=== PATIENT | male | born 1950 | race Hispanic/Latino ===

== ENCOUNTER → 2020-10-14 | Outpatient (CLI) | payer MEDICARE | END | disposition home or self-care (01) | LOC: SHCH 13:00 | PROVIDERS: ATTEND Internal Medicine Cardiovascular Disease | DX: I10 Essential (primary) hypertension (principal) | CPT/HCPCS: 93306 ==

== ENCOUNTER → 2023-04-24 | Outpatient (CLI) | payer OTHER, MEDICARE ==
[2023-04-24 12:37] LABS: ALBUMIN 3.7 g/dL (3.5-5.0); CREATININE 1.1 mg/dL (0.5-1.5); MAGNESIUM 1.8 mg/dL (1.80-2.40); POTASSIUM 4.4 mmol/L (3.5-5.1); TOTAL PROTEIN, SERUM 7.2 g/dL (6.0-8.3)
== END | disposition home or self-care (01) ==
LOC: LAB 08:18
PROVIDERS: ATTEND Internal Medicine Cardiovascular Disease
DX: I11.0 Hypertensive heart disease with heart failure (principal); E78.5 Hyperlipidemia, unspecified; I50.22 Chronic systolic (congestive) heart failure
CPT/HCPCS: 36415; 80053; 80061; 83735

== ENCOUNTER → 2023-09-26 | Outpatient (CLI) | payer OTHER, MEDICARE ==
[2023-09-26 12:35] LABS: ALBUMIN 3.5 g/dL (3.5-5.0); CREATININE 1.1 mg/dL (0.5-1.5); POTASSIUM 4.9 mmol/L (3.5-5.1); TOTAL PROTEIN, SERUM 7.1 g/dL (6.0-8.3)
== END | disposition home or self-care (01) ==
LOC: LAB 08:32
PROVIDERS: ATTEND Internal Medicine Cardiovascular Disease
DX: I11.0 Hypertensive heart disease with heart failure (principal); I50.22 Chronic systolic (congestive) heart failure; G47.33 Obstructive sleep apnea (adult) (pediatric)
CPT/HCPCS: 36415; 80053; 80061

== ENCOUNTER → 2024-01-16 | Outpatient (CLI) | payer OTHER, MEDICARE ==
[2024-01-16 12:26] LABS: ALBUMIN 3.5 g/dL (3.5-5.0); BILIRUBIN,TOTAL 1.1 mg/dL (0.2-1.0); CREATININE 1.1 mg/dL (0.5-1.5); POTASSIUM 4.4 mmol/L (3.5-5.1); TOTAL PROTEIN, SERUM 6.9 g/dL (6.0-8.3)
== END | disposition home or self-care (01) ==
LOC: LAB 08:37
PROVIDERS: ATTEND Internal Medicine Cardiovascular Disease
DX: E78.00 Pure hypercholesterolemia, unspecified (principal)
CPT/HCPCS: 36415; 80053; 80061

== ENCOUNTER → 2024-05-15 | Outpatient (CLI) | payer OTHER, MEDICARE ==
[2024-05-15 12:26] LABS: CREATININE 1.1 mg/dL (0.5-1.3)
== END | disposition home or self-care (01) ==
LOC: LAB 09:15
PROVIDERS: ATTEND Internal Medicine Cardiovascular Disease
DX: I11.0 Hypertensive heart disease with heart failure (principal); I50.22 Chronic systolic (congestive) heart failure; G47.33 Obstructive sleep apnea (adult) (pediatric)
CPT/HCPCS: 36415; 80048

== ENCOUNTER → 2024-06-25 | Outpatient (CLI) | payer OTHER, MEDICARE ==
[2024-06-25 12:20] LABS: CREATININE 1.2 mg/dL (0.5-1.3); POTASSIUM 4.5 mmol/L (3.5-5.1)
== END | disposition home or self-care (01) ==
LOC: LAB 08:08
PROVIDERS: ATTEND Internal Medicine Cardiovascular Disease
DX: I50.22 Chronic systolic (congestive) heart failure (principal)
CPT/HCPCS: 36415; 80048; 83880

== ENCOUNTER → 2024-12-30 | Outpatient (CLI) | payer OTHER, MEDICARE ==
[2024-12-30 13:03] LABS: ALBUMIN 3.7 g/dL (3.5-5.0); BILIRUBIN,TOTAL 1.1 mg/dL (0.2-1.0); CREATININE 1.1 mg/dL (0.5-1.3); POTASSIUM 4.7 mmol/L (3.5-5.1); TOTAL PROTEIN, SERUM 6.9 g/dL (6.0-8.3)
== END | disposition home or self-care (01) ==
LOC: LAB 09:17
PROVIDERS: ATTEND Internal Medicine Cardiovascular Disease
DX: I50.22 Chronic systolic (congestive) heart failure (principal); I95.2 Hypotension due to drugs
CPT/HCPCS: 36415; 80053; 80061; 83880

== ENCOUNTER 2025-11-21 13:29 | Emergency (ER) | payer OTHER, MEDICAID ==
[~2025-11-21] VITALS: Ht 177.8 cm; Wt 85.3 kg
[2025-11-21 13:30] VITALS: TEMP 98.3
--- NOTE | 2025-11-21 13:36 | ERN ---
ED Note History of Present Illness Stated Complaint: LOWER EXTREMITY PAIN Chief Complaint: Lower Extremity Pain/Injury Time Seen by MD: 13:31 Dictation: PATIENT IS A 75-YEAR-OLD MALE COMING IN TODAY WITH COMPLAINTS OF SWELLING TO HIS VEINS TO HIS LEFT LOWER EXTREMITY WITH COOLNESS TO TOUCH ONSET WAS ONE WEEK AGO. HE STATES HE DOES HAVE CLAUDICATION WITH A AMBULATION. STATES HE HAS A AN APPOINTMENT WITH SEE DR. GRAVES ON SATURDAY. Allergies: Coded Allergies: No Known Drug Allergies (Unverified Allergy, Unknown, 11/21/25) Past Medical History Past Medical History: Asthma, CAD, High Cholesterol, Hypertension Surgical History: Other Surgical History Other: NECK SX RN Note Reviewed/Agreed w/PFSH: Yes Review of System Dictation CONSTITUTIONAL: NEGATIVE EXCEPT FOR HPI HEAD/FACE: NEGATIVE EXCEPT FOR HPI EENT: NEGATIVE EXCEPT FOR HPI RESPIRATORY: NEGATIVE EXCEPT FOR HPI GASTROINTESTINAL/ABDOMINAL: NEGATIVE EXCEPT FOR HPI GENITOURINARY: NEGATIVE EXCEPT FOR HPI MUSCULOSKELETAL: NEGATIVE EXCEPT FOR HPI LEFT LEG PAIN WITH CLAUDICATION INTEGUMENTARY: NEGATIVE EXCEPT FOR HPI NEUROLOGICAL/PSYCH: NEGATIVE EXCEPT FOR HPI HEMATOLOGIC/LYMPHATIC: NEGATIVE EXCEPT FOR HPI ALL SYSTEMS NEGATIVE, EXCEPT NOTED ABOVE. 13 POINT REVIEW OF SYSTEMS ASSESSED AND ALL NEGATIVE EXCEPT FOR ABOVE. Initial Vital Sign VS Vital Signs Date Time Temp Pulse Resp B/P (MAP) Pulse Ox O2 Delivery O2 Flow Rate FiO2 11/21/25 13:30 98.2 80 20 170/63 99 Room Air 11/21/25 14:51 0 21 Physical Exam Dictation VITAL SIGNS REVIEWED GENERAL APPEARANCE: ALERT, ORIENTED X 3, NO ACUTE DISTRESS, WELL DEVELOPED, NOURISHED. HEAD AND FACE: NON-TRAUMATIC. EYES: PERRL, PINK CONJUNCTIVAS, EYELID NO TRAUMA, ANTERIOR CHAMBER WITH ARCUS SENILIS. EARS: PINNAS INTACT AND NO SIGNS OF TRAUMA OR ERYTHEMA EAR CANALS CLEAR AND NO DISCHARGE TM NO ERYTHEMA NOSE: NO DISCHARGE, NO BLEEDING. OROPHARYNX: MOUTH NORMAL, TONGUE PINK, PHARYNX CLEAR,NO ERYTHEMA, TONSILS NO EXUDATES, NO ABSCESSES NOTED, MUCOUS MEMBRANE MOIST NECK: SUPPLE, NON-TENDER, NO THYROMEGALY, NO MASSES, NO JVD, NO BRUITS BREAST:DEFERRED CHEST:NO TENDERNESS, NO CREPITUS, NO PARADOXICAL MOVEMENT, NO RETRACTIONS LUNGS:CLEAR, WELL-VENTILATED, SYMMETRIC, NO RALES, NO WHEEZING, NO RHONCHI, NO STRIDOR, GOOD BREATH SOUNDS BILATERALLY HEART: REGULAR RATE, REGULAR RHYTHM, NO MURMUR, NO GALLOPS VASCULAR: NO PERIPHERAL EDEMA, ABDOMEN: SOFT, POSITIVE BOWEL SOUNDS, NONDISTENDED, NO GUARDING, NONTENDER, NO REBOUND, NO MASSES NO HEPATOMEGALY, NO SPLENOMEGALY, NO VIDAL'S SIGN, NO HERNIAS. RECTAL: DEFERRED GENITAL: DEFERRED NEUROLOGICAL: NORMAL SPEECH, MOTOR FUNCTION INTACT, SENSORY FUNCTION INTACT MUSCULOSKELETAL: NECK NONTENDER, FULL RANGE OF MOTION, BACK NONTENDER, FULL RANGE OF MOTION, EXTREMITIES: NONTENDER, FULL RANGE OF MOTION LEFT LEG IS WARM TO TOUCH DISTAL LEAD, THREADY PULSES. THERE WAS NO CLUBBING SKIN: COLOR PINK, DRY, NO TURGOR, NO RASH, NO LACERATIONS, NO ABRASIONS, NO CONTUSIONS. LYMPHATIC: DEFERRED Results (Laboratory/Radiology) Laboratory/Radiology Laboratory Tests Test 11/21/25 13:44 White Blood Count 6.6 K/uL (4.8-10.8) Red Blood Count 4.36 MIL/uL (4.50-6.20) L Hemoglobin 14.6 g/dL (14.0-18.0) Hematocrit 43.7 % (42-54) Mean Corpuscular Volume 100.2 fL (79-99) H Mean Corpuscular Hemoglobin 33.5 pg (27.0-33.0) H Mean Corpuscular Hemoglobin Concent 33.4 g/dL (32.0-36.0) Red Cell Distribution Width 12.3 % (11.0-15.5) Platelet Count 203 K/uL (130-400) Mean Platelet Volume 10.3 fL (7.5-10.5) Immature Granulocyte % (Auto) 0.3 % (0-1) Neutrophils (%) (Auto) 76.0 % (40.0-77.0) Lymphocytes (%) (Auto) 14.2 % (21.0-51.0) L Monocytes (%) (Auto) 6.9 % (3.0-13.0) Eosinophils (%) (Auto) 2.1 % (0.0-8.0) Basophils (%) (Auto) 0.5 % (0.0-5.0) Neutrophils # (Auto) 5.0 K/uL (1.8-7.7) Lymphocytes # (Auto) 0.9 K/uL (1.0-4.8) L Monocytes # (Auto) 0.5 K/uL (0.1-1.0) Eosinophils # (Auto) 0.14 K/uL (0.00-0.70) Basophils # (Auto) 0.03 K/uL (0.00-0.20) Absolute Immature Granulocyte (auto 0.02 K/uL (0-1) Nucleated Red Blood Cells 0.0 % (0.0-0.19) Sodium Level 138 mmol/L (136-145) Potassium Level 4.6 mmol/L (3.5-5.1) Chloride Level 107 mmol/L (101-111) Carbon Dioxide Level 25 mmol/L (21-32) Blood Urea Nitrogen 22 mg/dL (7-18) H Creatinine 1.2 mg/dL (0.5-1.3) Glomerular Filtration Rate Calc 62 mL/min (>90) Random Glucose 109 mg/dL (70-105) H Total Calcium 8.2 mg/dL (8.5-10.1) L 1425/ARTERIAL DOPPLER STUDY DEMONSTRATES TRIPHASIC AND BIPHASIC FLOW DOWN TO PEDIS DORSALIS AND POSTERIOR TIB THOSE ARE MONOPHASIC. m/sec. Waveform: Triphasic. Stenosis is estimated at approximately 20?49%. SUPERFICIAL FEMORAL ARTERY: Proximal PSV: 114 cm/sec. Waveform: Biphasic. Mid PSV: 153 cm/sec( Elevated ). Waveform: Biphasic. Distal PSV: 65 cm/sec. Waveform: Biphasic. POPLITEAL ARTERY: Proximal PSV: 70 cm/sec. Waveform: Biphasic. Distal PSV: 62 cm/sec. Waveform: Biphasic. CALF ARTERIES: Posterior tibial artery PSV: 59 cm/s. Waveform: Biphasic. Anterior tibial artery PSV: 26 cm/s. Waveform: Monophasic. Dorsalis pedis artery PSV: 28 cm/sec. Waveform: Monophasic. Multilevel atheromatous calcific changes along the visualized deep arteries.IMPRESSION: 1. Mild stenosis (20-49%) of the left common femoral artery. 2. Elevated peak systolic velocity in the mid-superficial femoral artery, suggestive of moderate stenosis. 3. Monophasic waveforms in the anterior tibial and dorsalis pedis arteries, indicating peripheral arterial disease. Recommend CT angiography for further evaluation. /[facility] Reviewed?: Yes ED Course ED Course Orders Procedure Category Date Status Time Us Arterial Unila Low US 11/21/25 Resulted Ext Dupl 13:33 Cbc With Differential LAB 11/21/25 Complete 13:33 Basic Metabolic Panel LAB 11/21/25 Complete 13:33 Vital Signs Date Time Temp Pulse Resp B/P (MAP) Pulse Ox O2 Delivery O2 Flow Rate FiO2 11/21/25 14:51 62 18 99/64 98 Room Air* 0 21 11/21/25 13:30 98.2 80 20 170/63 99 Room Air 1545/no acute changes to left leg. Discharged home with Pad and told his see his doctor on Saturday for follow up Medical Decision Making MDM MDM: Differential diagnosis: Limb ischemia/PID/electrolyte imbalance/dehydration Rationale: Tests considered and ordered secondary to shared decision making include: Radiology/labs Previous outside records reviewed: Old ER visits. Risk of complication and/or morbidity or mortality of patient management: None Medications-Per medication reconciliation Need for hospitalization: Patient does not meet criteria for hospitalization. None Need for emergency major/minor surgery: No There are no social concerns with this patient. Prescription drug management none Prescriptions will include symptomatic care Patient's prior external medical records from other ER visits were reviewed by me as indicated. Prior testing and results from previous visits were reviewed. Prior tests were taken into account with medical decision making and resource utilization, independent historian/historians were used to obtain complete medical history. I independently interpreted the test that were performed, results were reviewed by me and considered findings on radiology if ordered. Medical management and examination interpretation discussions were had by me with other qualified healthcare professionals as indicated for the patient's care. DX & DISP Disposition: Discharge Departure Impression: Primary Impression: Peripheral artery disease Additional Impressions: Stage 3 chronic kidney disease, Hypocalcemia Condition: Stable Scripts Aspirin (Aspirin) 81 Mg Tab.chew 1 TAB PO DAILY for 30 Days, #30 TAB 0 Refills Prov: RESHMA DRAPER 11/21/25 Additional Instructions: Follow-up with primary care provider in 1 to 2 days. Take medications as directed here in the emergency room. Okay to continue home medications unless otherwise discussed during your visit in the emergency room today. Return to your nearest emergency room if symptoms worsen or if there is no improvement. Call 911 if you need immediate assistance. Take Tylenol or Motrin [id number] as needed and if no contraindications are present. Increase oral hydration. A wound culture or urine culture was ordered here in the emergency room department please follow-up with primary care provider and advise them to get repeat ports from our facility. If you had any Dax wrap/splints that were applied here, please do not remove them until you see your primary care or specialty. Take aspirin chewable daily as directed with food Keep your appointment with the your primary care doctor next week. Referrals: DENNIS GRAVES MD (PCP) Time of Disposition: 15:48 I have reviewed the case, and I agree with, Diagnosis and Plan RESHMA DRAPER [facility] Nov 21, 2025 13:36
[2025-11-21 13:53] LABS: IMMATURE GRANULOCYTE ABSOLUTE 0.02 K/uL (0-1); NUCLEATED RED BLOOD CELLS 0.0 % (0.0-0.19); PLATELET COUNT (AUTO) 203 K/uL (130-400); RED BLOOD CELL COUNT(AUTO) 4.36 MIL/uL (4.50-6.20); RED CELL DISTRIBUTION WIDTH 12.3 % (11.0-15.5); WHITE BLOOD COUNT (AUTO) 6.6 K/uL (4.8-10.8)
[2025-11-21 14:08] LABS: CREATININE 1.2 mg/dL (0.5-1.3); GLOMERULAR FILTR. RATE CALC 62.0 mL/min (>90); GLUCOSE,RANDOM 109.0 mg/dL (70-105); SODIUM SERUM 138.0 mmol/L (136-145); UREA NITROGEN, BLOOD 22.0 mg/dL (7-18)
[2025-11-21 14:51] VITALS: BP 99/64; PULSE 62; RESP 18; O2SAT 98
--- NOTE | 2025-11-21 15:42 | HMCIMG ---
EXAM: US Duplex left Lower Extremity Arteries. CLINICAL HISTORY: LEFT LEG PAIN WITH CLAUDICATION. TECHNIQUE: Real-time ultrasound scan of the arteries of the left lower extremity with 2-D thompson scale, color Doppler flow and spectral waveform analysis. COMPARISON: None provided. FINDINGS: COMMON FEMORAL ARTERY: PSV: 160 cm/sec. Waveform: Triphasic. Stenosis is estimated at approximately 2049%. SUPERFICIAL FEMORAL ARTERY: Proximal PSV: 114 cm/sec. Waveform: Biphasic. Mid PSV: 153 cm/sec( Elevated ). Waveform: Biphasic. Distal PSV: 65 cm/sec. Waveform: Biphasic. POPLITEAL ARTERY: Proximal PSV: 70 cm/sec. Waveform: Biphasic. Distal PSV: 62 cm/sec. Waveform: Biphasic. CALF ARTERIES: Posterior tibial artery PSV: 59 cm/s. Waveform: Biphasic. Anterior tibial artery PSV: 26 cm/s. Waveform: Monophasic. Dorsalis pedis artery PSV: 28 cm/sec. Waveform: Monophasic. Multilevel atheromatous calcific changes along the visualized deep arteries.IMPRESSION: 1. Mild stenosis (20-49%) of the left common femoral artery. 2. Elevated peak systolic velocity in the mid-superficial femoral artery, suggestive of moderate stenosis. 3. Monophasic waveforms in the anterior tibial and dorsalis pedis arteries, indicating peripheral arterial disease. Recommend CT angiography for further evaluation. /[place]
[2025-11-21] MEDS ORDERED: ASPI-1197 PO (15:50)
[2025-11-21] MEDS ORDERED: ASPIRIN 325MG TAB PO ONE (16:00)
== END 2025-11-21 16:01 | disposition home or self-care (01) ==
LOC: EDH 13:29
DX: I73.9 Peripheral vascular disease, unspecified (principal); I12.9 Hypertensive chronic kidney disease with stage 1 through stage 4 chronic kidney disease, or unspecified chronic kidney disease; N18.30 Chronic kidney disease, stage 3 unspecified; E83.51 Hypocalcemia; E78.00 Pure hypercholesterolemia, unspecified; I25.10 Atherosclerotic heart disease of native coronary artery without angina pectoris; J45.909 Unspecified asthma, uncomplicated
CPT/HCPCS: 36415; 80048; 85025; 93926; 99284